=== PATIENT | female | born 1980 | race Caucasian/White ===

== ENCOUNTER 2022-02-04 09:26 | Emergency (ER) | payer MEDICAID, OTHER ==
[~2022-02-04] VITALS: Ht 167.6 cm; Wt 79.0 kg
[2022-02-04] MEDS ORDERED: ACET-2708 PO (09:33)
[2022-02-04] MEDS ORDERED: BENZ1LOZ73 MT (10:48)
[2022-02-04 11:04] VITALS: BP 156/88
== END 2022-02-04 11:05 | disposition home or self-care (01) ==
LOC: ER 09:45
DX: J06.9 Acute upper respiratory infection, unspecified (principal); Z98.890 Other specified postprocedural states
CPT/HCPCS: 99281